=== PATIENT | male | born 1995 | race African-American/Black ===

== ENCOUNTER 2017-01-09 21:57 | Emergency (ER) | payer BC ==
[~2017-01-09 21:57] MED LIST: BECL8.7A6 IH; MONT10TA9 PO; PRED20TA PO; PROVENTIL HFA6.7 GM IH
[2017-01-09 22:06] VITALS: BP 129/61
--- NOTE | 2017-01-09 22:45 | PHYS DOC ---
Past Medical History Past Medical History: Asthma Past Surgical History: No Surgical History Alcohol Use: None Drug Use: None Adult General Chief Complaint Chief Complaint: ASTHMA HPI HPI Patient is a 21 year old female presents emergency department stating that he' s had a cough and congestion with some maxillary sinus pressure for the last few days. He states that he's been waking about the middle the night with wheezing. He states he uses his inhaler which seemed to help briefly. He denies any fever, chills or any nausea or vomiting. He states he was last on steroids approximately 3 months ago. She does state he's had a productive cough and when she is coughing up blood-tinged sputum. Review of Systems Review of Systems Constitutional: Denies fever or chills [] Eyes: Denies change in visual acuity, redness, or eye pain [] HENT: nasal congestion denies sore throat [] Respiratory: cough with wheezing denies shortness of breath [] Cardiovascular: No additional information not addressed in HPI [] GI: Denies abdominal pain, nausea, vomiting, bloody stools or diarrhea [] : Denies dysuria or hematuria [] Musculoskeletal: Denies back pain or joint pain [] Integument: Denies rash or skin lesions [] Neurologic: Denies headache, focal weakness or sensory changes [] Current Medications Current Medications Current Medications Medications (Trade) Dose Ordered Sig/Alta Start Time Stop Time Status Last Admin Dose Admin Albuterol Sulfate (Ventolin Neb Soln) 2.5 mg 1X ONCE 01/09/17 23:00 01/09/17 23:01 01/09/17 22:42 2.5 MG Allergies Allergies Allergies Coded Allergies Type Severity Reaction Last Updated Verified No Known Drug Allergies 03/18/15 No Physical Exam Physical Exam Constitutional: Well developed, well nourished, no acute distress, non-toxic appearance. [] HENT: Normocephalic, atraumatic, bilateral external ears normal, oropharynx moist, no oral exudates, nose normal. Lateral tympanic membranes appear to be normal. Throat with erythematous with postnasal drip yellow in color noted. Patient with maxillary sinus tenderness noted. Eyes: PERRLA, EOMI, conjunctiva normal, no discharge. [] Neck: Normal range of motion, no tenderness, supple, no stridor. [] Cardiovascular:Heart rate regular rhythm, no murmur [] Lungs & Thorax: Bilateral breath sounds wheezes noted in the left posterior lower lobes. Skin: Warm, dry, no erythema, no rash. [] Back: No tenderness Extremities: No tenderness, no cyanosis, no clubbing, ROM intact, no edema. [] Neurologic: Alert and oriented X 3, normal motor function, normal sensory function, no focal deficits noted. [] Psychologic: Affect normal, judgement normal, mood normal. [] Current Patient Data Vital Signs Vital Signs Date Time Temp Pulse Resp B/P Pulse Ox O2 Delivery O2 Flow Rate FiO2 01/09/17 22:42 96 Room Air 01/09/17 22:06 97.6 68 16 97.6 EKG EKG [] Radiology/Procedures Radiology/Procedures [] Course & Med Decision Making Course & Med Decision Making Pertinent Labs and Imaging studies reviewed. (See chart for details) Patient was provided with respiratory treatment in which has helped him. Patient will be discharged home with prednisone and Augmentin for sinusitis infection. Patient will be discharged with recommended for Tylenol or ibuprofen. Recommended Sudafed to help with the sinus pressure. Mucinex DM for cough and congestion. Patient will be discharged home in stable condition. Patient was provided with signs and symptoms to return back to the emergency department. [] Dragon Disclaimer Dragon Disclaimer This electronic medical record was generated, in whole or in part, using a voice recognition dictation system. Departure Departure Impression: Primary Impression: Sinusitis Additional Impression: Asthma exacerbation Disposition: HOME, SELF-CARE Condition: STABLE Referrals: NO PCP (PCP) Patient Instructions: Asthma, Adult, [id number], Sinusitis, Akse-[id number] Additional Instructions: Home to rest. Medications as prescribed. Make sure you take all the antibiotics as instructed. Tylenol or ibuprofen for fever chills or generalized body aches and discomfort. Sudafed as directed by swing frame grinder operator [id number] to help with sinus pressure. Mucinex DM [id number] to help with nasal congestion as well as cough. Follow-up the primary care physician next 3-5 days. Return back to emergency prior signs symptoms of become worse. Scripts Prednisone 20 Mg [id number] Mg PO DAILY #10 TAB Prov:LANE IRIZARRY MATH PROFESSOR 01/09/17 Amoxicillin/Potassium Clav (Augmentin 875-125 Tablet)1 Each Tablet1 Tab PO BID # 20 TAB Prov:LANE IRIZARRY APRN 01/09/[address] IRIZARRY APRN Jan 09, 2017 22:45
[2017-01-09] MEDS ORDERED: PRED20TA PO (23:00)
[2017-01-09] MEDS ORDERED: AMOX1TAB61 PO (23:00)
[2017-01-09] MEDS ORDERED: ALBUTEROL SULFATE 2.5 MG/3 ML NEBU. NEB ONE (23:00)
== END 2017-01-09 23:05 | disposition home or self-care (01) ==
LOC: ER 21:57
DX: J32.0 Chronic maxillary sinusitis (principal); J45.901 Unspecified asthma with (acute) exacerbation
CPT/HCPCS: 94640; 99283-25

== ENCOUNTER 2017-03-01 10:06 | Emergency (ER) | payer BC ==
[~2017-03-01] VITALS: Ht 185.4 cm; Wt 86.2 kg
[~2017-03-01 10:06] MED LIST changes: +AMOX1TAB61 PO
[2017-03-01 10:15] VITALS: BP 139/92
--- NOTE | 2017-03-01 10:23 | PHYS DOC ---
Past Medical History Past Medical History: Asthma Past Surgical History: No Surgical History Alcohol Use: None Drug Use: None Adult General Chief Complaint Chief Complaint: SUTURE/STAPLE REMOVAL [facility] HPI Patient is a 21 year old male presents to the emergency department with a history of asthma. Patient states he has had wheezing in which he has used his inhaler without relief. He cannot remember when he was on steroids last. He denies fever, chills, or nausea and vomiting. Patient also states he has sutures above his left eye that needs to be removed. Patient states they were place about 4 days ago. He denies drainage or discharge from the site. Review of Systems Review of Systems Constitutional: Denies fever or chills [] Eyes: Denies change in visual acuity, redness, or eye pain [] HENT: Denies nasal congestion or sore throat [] Respiratory: Denies cough or shortness of breath. C/o wheezing Cardiovascular: No additional information not addressed in HPI [] GI: Denies abdominal pain, nausea, vomiting, bloody stools or diarrhea [] : Denies dysuria or hematuria [] Musculoskeletal: Denies back pain or joint pain [] Integument: Denies rash or skin lesions. Suture removal Neurologic: Denies headache, focal weakness or sensory changes [] Endocrine: Denies polyuria or polydipsia [] Current Medications Current Medications Current Medications Medications (Trade) Dose Ordered Sig/[facility] Start Time Stop Time Status Last Admin Dose Admin Albuterol/ Ipratropium (Duoneb) 3 ml 1X ONCE 03/01/17 10:30 03/01/17 10:31 DC 03/01/17 10:29 3 ML Prednisone (Prednisone) 40 mg 1X ONCE 03/01/17 10:30 03/01/17 10:31 DC 03/01/17 10:33 40 MG Allergies Allergies Allergies Coded Allergies Type Severity Reaction Last Updated Verified No Known Drug Allergies 03/18/15 No Physical Exam Physical Exam Constitutional: Well developed, well nourished, no acute distress, non-toxic appearance. [] HENT: Normocephalic, atraumatic, bilateral external ears normal, oropharynx moist, no oral exudates, nose normal. [] Eyes: PERRLA, EOMI, conjunctiva normal, no discharge. [] Neck: Normal range of motion, no tenderness, supple, no stridor. [] Cardiovascular:Heart rate regular rhythm, no murmur [] Lungs & Thorax: Bilateral breath sounds with wheezes noted bilaterally Skin: Warm, dry, no erythema, no rash. Patient with 3 sutures noted above the left eye with edges noted to be approximated well, no drainage or discharge noted from the site. Back: No tenderness Extremities: No tenderness, no cyanosis, no clubbing, ROM intact, no edema. [] Neurologic: Alert and oriented X 3, normal motor function, normal sensory function, no focal deficits noted. [] Psychologic: Affect normal, judgement normal, mood normal. [] Current Patient Data Vital Signs Vital Signs Date Time Temp Pulse Resp B/P (MAP) Pulse Ox O2 Delivery O2 Flow Rate FiO2 03/01/17 10:24 95 Room Air 03/01/17 10:15 97.9 54 54 97.9 EKG EKG [] Radiology/Procedures Radiology/Procedures [] Course & Med Decision Making Course & Med Decision Making Pertinent Labs and Imaging studies reviewed. (See chart for details) Patient was provided with respiratory treatment has helped with the wheezing. Patient states he feels he can breathe better. Patient was provided with prednisone here in the emergency department. He'll be discharged home with a prescription for prednisone will ask him to continue using his albuterol as needed for wheezing and shortness of air. 3 sutures were removed from the left upper eyelid with no difficulty. She no drainage or discharge noted. Patient was provided with discharge instructions treatment regimens and signs and symptoms to return back to the emergency department. [] Dragon Disclaimer Dragon Disclaimer This electronic medical record was generated, in whole or in part, using a voice recognition dictation system. Departure Departure Impression: Primary Impression: Asthma exacerbation Additional Impression: Visit for suture removal Disposition: HOME, SELF-CARE Condition: STABLE Referrals: CRISTELA LEES MD (PCP) Patient Instructions: Asthma, Adult, [id number], Suture Removal-Brief Additional Instructions: Activity as tolerated Medications prescribed. Usual albuterol and had an inhaler as needed. Keep the suture site clean and dry. Clean the site with soap and water and apply antibiotic ointment to the area twice a day. Continue to watch for signs and symptoms of infection: Redness, warmth, tenderness or any yellow/greenish drainage that returned the site. If this should happen follow-up to primary care physician immediately. Follow-up with primary care physician as needed. Return back to emergency prior signs symptoms of become worse. Scripts Ipratropium/Albuterol Sulfate (DUONEB 0.5-3(2.5) MG/3 ML) 3 Ml Ampul.neb 3 ML NEB QID, #1 XAL UNIT Prov: LANE IRIZARRY APRN 03/01/17 Prednisone (PREDNISONE) 20 Mg Tablet 40 MG PO DAILY, #14 TAB Prov: LANE IRIZARRY APRN 03/01/[address] IRIZARRY APRN March 01, 2017 10:23
[2017-03-01] MEDS ORDERED: predniSONE 20 MG TABLET PO ONE (10:30)
[2017-03-01] MEDS ORDERED: IPRATRPIUM/ALBUTEROL 0.5/2.5MG 3 ML NEBU. NEB ONE (10:30)
[2017-03-01] MEDS ORDERED: PRED20TA PO (10:44)
[2017-03-01] MEDS ORDERED: IPRA3AMP NEB (10:44)
== END 2017-03-01 10:50 | disposition home or self-care (01) ==
LOC: ER 10:45
DX: J45.901 Unspecified asthma with (acute) exacerbation (principal); S05.32XD Ocular laceration without prolapse or loss of intraocular tissue, left eye, subsequent encounter; Y93.89 Activity, other specified; Y92.89 Other specified places as the place of occurrence of the external cause; Y99.8 Other external cause status
CPT/HCPCS: 94640; 99283; J7512; J7620

== ENCOUNTER 2017-09-06 22:29 | Emergency (ER) | payer BC ==
[~2017-09-06] VITALS: Ht 185.4 cm; Wt 81.6 kg
[~2017-09-06 22:29] MED LIST changes: +IPRA3AMP NEB
--- NOTE | 2017-09-06 22:31 | PHYS DOC ---
Past Medical History Past Medical History: Asthma Past Surgical History: No Surgical History Alcohol Use: None Drug Use: None Adult General Chief Complaint Chief Complaint: SKIN RASH/ABSCESS [facility] HPI Patient is a 21 year old male who presents with swelling/discharge out of his neck. He states it started 2 days ago. He denies any fevers chills nausea or vomiting. He denies any allergies and meds are currently on any medications. He states his tetanus shot is up-to-date. Review of Systems Review of Systems Constitutional: Denies fever or chills [] Eyes: Denies change in visual acuity, redness, or eye pain [] HENT: Denies nasal congestion or sore throat [] Respiratory: Denies cough or shortness of breath [] Cardiovascular: No additional information not addressed in HPI [] GI: Denies abdominal pain, nausea, vomiting, bloody stools or diarrhea [] : Denies dysuria or hematuria [] Musculoskeletal: Denies back pain or joint pain [] Integument: Positive for skin lesion on his neck. Neurologic: Denies headache, focal weakness or sensory changes [] Endocrine: Denies polyuria or polydipsia [] All other systems were reviewed and found to be within normal limits, except as documented in this note. Current Medications Current Medications Current Medications Medications (Trade) Dose Ordered Sig/Alta Start Time Stop Time Status Last Admin Dose Admin Clindamycin HCl (Cleocin) 300 mg 1X ONCE 09/06/17 23:30 09/06/17 23:31 Allergies Allergies Allergies Coded Allergies Type Severity Reaction Last Updated Verified No Known Drug Allergies 03/18/15 No Physical Exam Physical Exam Constitutional: Well developed, well nourished, no acute distress, non-toxic appearance. [] HENT: Normocephalic, atraumatic, bilateral external ears normal, oropharynx moist, no oral exudates, nose normal. [] Eyes: PERRLA, EOMI, conjunctiva normal, no discharge. [] Neck: Normal range of motion, no tenderness, supple, no stridor. [] Cardiovascular:Heart rate regular rhythm, no murmur [] Lungs & Thorax: Bilateral breath sounds clear to auscultation [] Abdomen: Bowel sounds normal, soft, no tenderness, no masses, no pulsatile masses. [] Skin: Warm, dry, no erythema, no rash. 1 cm mobile mass with mild erythema and purulent discharge on his anterior neck Back: No tenderness, no CVA tenderness. [] Extremities: No tenderness, no cyanosis, no clubbing, ROM intact, no edema. [] Neurologic: Alert and oriented X 3, normal motor function, normal sensory function, no focal deficits noted. [] Psychologic: Affect normal, judgement normal, mood normal. [] Current Patient Data Vital Signs Vital Signs Date Time Temp Pulse Resp B/P (MAP) Pulse Ox O2 Delivery O2 Flow Rate FiO2 09/06/17 22:32 97.1 61 16 98 Room Air 97.1 EKG EKG [] Radiology/Procedures Radiology/Procedures [] Impressions: Abscess/cellulitis Course & Med Decision Making Course & Med Decision Making Pertinent Labs and Imaging studies reviewed. (See chart for details) 30 tell this is an abscess but was able to drain a small amount of pus from and obtain a culture. Or if this is an enlarged lymph node. He is afebrile and has no other signs of cellulitis or other skin lesions above this enlarged mass. His tetanus is up-to-date. We'll treat with clindamycin for 10 days and him to follow-up with his primary care physician within 4-5 days to see if this doesn' t resolve. He is instructed return back to ER if he has any trouble swallowing, breathing, fevers or other concerns. Dragon Disclaimer Dragon Disclaimer This electronic medical record was generated, in whole or in part, using a voice recognition dictation system. Incision and Drainage Indication: abscess Procedure: The patient was positioned appropriately. . An incision was then made over the apex of the lesion and small amount of material was expressed. he patients tetanus status updated as needed. The patient tolerated the procedure well. Complications: none. Departure Departure Impression: Primary Impression: Cellulitis Disposition: 01 HOME, SELF-CARE Condition: STABLE Referrals: CRISTELA VIEIRA MD (PCP) Patient Instructions: Cellulitis Additional Instructions: You likely have an infection and this is why the left no new neck is swollen. There was likely an infected hair around it that I drained the pus from around the area. You will need take antibiotic for the next 10 days. You'll need follow -up with Dr. Vieira within the next 3-5 days. If you develop high fevers, worsening swelling, troubles breathing, uncontrolled nausea vomiting or other concerns please return back to ER. Please take all your antibiotics as instructed. Scripts Clindamycin Hcl (CLINDAMYCIN HCL) 300 Mg Capsule 1 CAP PO Q6HRS, #40 CAP Prov: RALIN SWEET MD 09/06/17 ARLIN SWEET MD Sep 06, 2017 22:31
[2017-09-06 22:32] VITALS: BP 141/82
[2017-09-06] MEDS ORDERED: CLIN300C8 PO (23:00)
[2017-09-06] MEDS ORDERED: CLINDAMYCIN HCL 150 MG CAPSULE. PO ONE (23:30)
== END 2017-09-06 23:13 | disposition home or self-care (01) ==
LOC: ER 22:29
DX: L02.11 Cutaneous abscess of neck (principal); J45.909 Unspecified asthma, uncomplicated
CPT/HCPCS: 10060; 87071; 87075; 87186; 87205; 99284-25

== ENCOUNTER 2018-03-21 22:57 | Emergency (ER) | payer BC ==
[2018-03-21] MEDS: IPRATRPIUM/ALBUTEROL 0.5/2.5MG 3 ML NEBU. NEB (23:41)
[2018-03-21] MEDS: predniSONE 20 MG TABLET PO (23:51)
[2018-03-22] MEDS: ALBUTEROL SULFATE 2.5 MG/3 ML NEBU. NEB
== END 2018-03-22 00:50 | disposition home or self-care (01) ==
LOC: ER 03-22 00:50
DX: J45.901 Unspecified asthma with (acute) exacerbation (principal); Z91.041 Radiographic dye allergy status
CPT/HCPCS: 94640; 99284-25; J7512; J7613; J7620

== ENCOUNTER 2018-04-16 20:29 | Inpatient (IN) | payer SELFPAY ==
[2018-04-16] MEDS ORDERED: IPRATRPIUM/ALBUTEROL 0.5/2.5MG 3 ML NEBU. (21:24)
[2018-04-16] MEDS ORDERED: ALBUTEROL SULFATE 2.5 MG/3 ML NEBU. (21:24)
[2018-04-16] MEDS ORDERED: methylPREDNISolone SOD SUCC PF 125 MG/2 ML VIAL. (21:31)
[2018-04-16] MEDS: ALBUTEROL SULFATE 2.5 MG/3 ML NEBU. CONT NEB (21:33)
[2018-04-16] MEDS: methylPREDNISolone SOD SUCC PF 125 MG/2 ML VIAL. IV (21:34)
[2018-04-16] MEDS: MAGNESIUM SULFATE 2GM 50 ML IV (22:40)
[2018-04-16] MEDS: IPRATRPIUM/ALBUTEROL 0.5/2.5MG 3 ML NEBU. NEB ×2 (22:54→23:00)
[2018-04-16] MEDS: MONTELUKAST SODIUM 10 MG TABLET. PO (23:16)
[2018-04-17] MEDS: IPRATRPIUM/ALBUTEROL 0.5/2.5MG 3 ML NEBU. NEB ×7 (02:12→19:44)
[2018-04-17 04:46] LABS: BASO % 0 % (0-3); EOS % 0 % (0-3); HEMATOCRIT 51.9 % (39.0-53.0); HEMOGLOBIN 17.3 g/dL (13.0-17.5); LYMPH # 0.6 x10^3/uL (1.0-4.8); LYMPH % 4 % (24-48); MEAN CORPUSCULAR HEMOGLOBIN 32 pg (25-35); MEAN CORPUSCULAR HGB CONC 33 g/dL (31-37); MEAN CORPUSCULAR VOLUME 97 fL (79-100); MONO # 0.3 x10^3/uL (0.0-1.1); MONO % 3 % (0-9); NEUT % 93 % (31-73); PLATELET COUNT 250 x10^3/uL (140-400); RED BLOOD COUNT 5.33 x10^6/uL (4.30-5.70)
[2018-04-17 05:14] LABS: ADD MAN DIFF? YES
[2018-04-17 05:16] LABS: ANION GAP 6 (6-14); BLOOD UREA NITROGEN 11 mg/dL (8-26); CALCIUM 11.2 mg/dL (8.5-10.1); CARBON DIOXIDE 25 mmol/L (21-32); CHLORIDE 96 mmol/L (98-107); CREATININE 1.1 mg/dL (0.7-1.3); GFR 102.2; GLUCOSE 72 mg/dL (70-99); POTASSIUM 4.3 mmol/L (3.5-5.1); SODIUM 127 mmol/L (136-145)
[2018-04-17] MEDS: methylPREDNISolone SOD SUCC PF 125 MG/2 ML VIAL. IV ×4 (05:59→18:12)
[2018-04-17 08:53] LABS: % BANDS 2 % (0-9); % LYMPHS 3 % (24-48); % MONOS 3 % (0-10); % SEGS 92 % (35-66); PLT ESTIMATE ADEQUATE (ADEQUATE)
[2018-04-17] MEDS ORDERED: ALBUTEROL SULFATE 2.5 MG/3 ML NEBU. NEB (14:45)
[2018-04-17] MEDS: BUDESONIDE 0.5 MG/2 ML NEBU. NEB (19:44)
[2018-04-17 21:10] LABS: MRSA BY PCR Negative (Negative)
[2018-04-17] MEDS: MONTELUKAST SODIUM 10 MG TABLET. PO (21:24)
[2018-04-18] MEDS: methylPREDNISolone SOD SUCC PF 125 MG/2 ML VIAL. IV ×4 (00:15→18:25)
[2018-04-18] MEDS: IPRATRPIUM/ALBUTEROL 0.5/2.5MG 3 ML NEBU. NEB ×4 (07:48→20:00)
[2018-04-18] MEDS: BUDESONIDE 0.5 MG/2 ML NEBU. NEB ×2 (07:48→20:00)
[2018-04-18] MEDS: AZITHROMYCIN 500 MG in IV NORMAL SALINE 250ML 250 ML IV (17:10)
== END 2018-04-19 07:15 | disposition home or self-care (01) | DRG 202 ==
LOC: ER 20:29 → 5 NORTH 22:35
DX: J45.902 Unspecified asthma with status asthmaticus (principal); J96.00 Acute respiratory failure, unspecified whether with hypoxia or hypercapnia; Z82.5 Family history of asthma and other chronic lower respiratory diseases; Z83.3 Family history of diabetes mellitus; Z79.899 Other long term (current) drug therapy
CPT/HCPCS: 36415; 71045; 80048; 85007; 85025; 87641; 93005; 94640; 94644; 94760; 96365; 96375; 99291-25; J0456; J2930; J3475; J7050; J7613; J7620; J7626

== ENCOUNTER 2018-07-08 21:37 | Emergency (ER) | payer OTHER ==
[~2018-07-08] VITALS: Ht 185.4 cm; Wt 82.6 kg
[~2018-07-08 21:37] MED LIST changes: +ALBU2.5V14 NEB; +AZIT250T6 PO; +CLIN300C8 PO; -IPRA3AMP NEB; +IPRA3AMP29 NEB; +MOME13HF2 IH; +PRED-220 PO; +PRED50TA PO; +PROAIR HFA8.5 GM INH; +TIOT18CA IH
[2018-07-08 21:40] VITALS: BP 129/74
--- NOTE | 2018-07-08 21:53 | PHYS DOC ---
Past Medical History Past Medical History: Asthma Past Surgical History: No Surgical History Alcohol Use: None Drug Use: None Adult General Chief Complaint Chief Complaint: ASTHMA HPI HPI Patient is a 22 year old male with a PMH for asthma and allergies who presents to the ED with shortness of breath, wheezing, and nonproductive cough. Patient states his symptoms began one day ago after he worked out at the gym. He notes his symptoms are worse with activity such as walking up stairs. He denies any chest pain, headaches, or dizziness. He states he has had symptoms like this in the past for which he received Duoneb treatments. He states he took albuterol earlier today before coming to the ED. Review of Systems Review of Systems Constitutional: Denies fever or chills [] Eyes: Denies change in visual acuity, redness, or eye pain [] HENT: Denies nasal congestion or sore throat [] Respiratory: Denies cough or shortness of breath [] Cardiovascular: No additional information not addressed in HPI [] GI: Denies abdominal pain, nausea, vomiting, bloody stools or diarrhea [] : Denies dysuria or hematuria [] Musculoskeletal: Denies back pain or joint pain [] Integument: Denies rash or skin lesions [] Neurologic: Denies headache, focal weakness or sensory changes [] Endocrine: Denies polyuria or polydipsia [] All other systems were reviewed and found to be within normal limits, except as documented in this note. Family History Family History Father- asthma Grandmother- asthma Current Medications Current Medications Current Medications Medications (Trade) Dose Ordered Sig/Alta Start Time Stop Time Status Last Admin Dose Admin Albuterol/ Ipratropium (Duoneb) 3 ml 1X ONCE 07/08/18 23:00 07/08/18 23:01 Dexamethasone (Decadron) 10 mg 1X ONCE 07/08/18 22:00 07/08/18 22:01 DC Allergies Allergies Allergies Coded Allergies Type Severity Reaction Last Updated Verified No Known Medication Allergies Allergy Unknown 09/11/17 Yes Physical Exam Physical Exam Constitutional: Well developed, well nourished, no acute distress, non-toxic appearance. [] HENT: Normocephalic, atraumatic, bilateral external ears normal, oropharynx moist, no oral exudates, nose normal. [] Eyes: PERRLA, EOMI, conjunctiva normal, no discharge. [] Neck: Normal range of motion, no tenderness, supple, no stridor. [] Cardiovascular:Heart rate regular rhythm, no murmur [] Lungs & Thorax: Bilateral breath sounds clear to auscultation [] Abdomen: Bowel sounds normal, soft, no tenderness, no masses, no pulsatile masses. [] Skin: Warm, dry, no erythema, no rash. [] Back: No tenderness, no CVA tenderness. [] Extremities: No tenderness, no cyanosis, no clubbing, ROM intact, no edema. [] Neurologic: Alert and oriented X 3, normal motor function, normal sensory function, no focal deficits noted. [] Psychologic: Affect normal, judgement normal, mood normal. [] Current Patient Data Vital Signs Vital Signs Date Time Temp Pulse Resp B/P (MAP) Pulse Ox O2 Delivery O2 Flow Rate FiO2 07/08/18 22:16 98 Room Air 07/08/18 21:40 98.8 118 28 129/74 (92) 98.8 EKG EKG [] Radiology/Procedures Radiology/Procedures [] Course & Med Decision Making Course & Med Decision Making Patient is a 22 year old male with a PMH for asthma and allergies who presents to the ED with shortness of breath, wheezing, and nonproductive cough. Pertinent imaging studies were obtained and reviewed. Chest x-ray showed no acute abnormalities. Symptoms likely due to asthma exacerbation. Patient was provided a dose of Prednisone and Duoneb treatment x2 in the ED. Patient noted that he has albuterol inhaler as well as nebulizer solution at home. He was provided with a 4-day prescription for Prednisone. Patient stable for discharge with outpatient follow-up with PCP. Discussed findings and plan with patient and family, who acknowledge understanding and agreement. Dragon Disclaimer Dragon Disclaimer This electronic medical record was generated, in whole or in part, using a voice recognition dictation system. Departure Departure Impression: Primary Impression: Asthma exacerbation Disposition: 01 HOME, SELF-CARE Condition: STABLE Referrals: NO PCP (PCP) Patient Instructions: Asthma, Adult, [id number] Scripts Prednisone (PREDNISONE) 20 Mg Tablet 2 TAB PO DAILY PRN for COUGH for 4 Days, #8 TAB Take next dose on 07/09/2018 Prov: PAULINE HESTER DO 07/08/18 Problem Qualifiers Primary Impression: Asthma exacerbation Asthma severity: unspecified severity Asthma persistence: unspecified Qualified Codes: J45.901 - Unspecified asthma with (acute) exacerbation PAULINE HESTER DO Jul 08, 2018 21:53
[2018-07-08] MEDS ORDERED: IPRATRPIUM/ALBUTEROL 0.5/2.5MG 3 ML NEBU. NEB ONE ×2 (22:00→23:00)
[2018-07-08] MEDS ORDERED: DEXAMETHASONE 4 MG TABLET PO ONE (22:00)
[2018-07-08] MEDS ORDERED: PRED20TA PO (22:40)
--- NOTE | 2018-07-08 23:23 | RAD ---
Exam performed: 2 views of the chest. Indication: dyspnea, hx of asthma Date of Service: 07/08/2018 9:45 PM . Comparison : One view chest from March 17, 2018 Findings: PA and lateral radiographs of the chest reveal a normal cardiomediastinal contour. The lungs are clear. No pleural fluid is seen. The visualized osseous structures are unremarkable. Impression: No acute cardiopulmonary process seen. Electronically signed by: Nita Knight MD (07/08/2018 11:20 PM) [facility]
== END 2018-07-08 23:45 | disposition home or self-care (01) ==
LOC: ER 21:37
DX: J45.901 Unspecified asthma with (acute) exacerbation (principal)
CPT/HCPCS: 71046; 94640; 99284; J7620

== ENCOUNTER 2019-01-30 16:06 | Emergency (ER) | payer OTHER ==
[~2019-01-30] VITALS: Ht 185.4 cm; Wt 81.6 kg
[~2019-01-30 16:06] MED LIST changes: +ALBU2.5V8 IH; +ALBU2.5V8 INH; -PROAIR HFA8.5 GM INH; -PROVENTIL HFA6.7 GM IH
[2019-01-30 16:35] VITALS: BP 140/69
[2019-01-30] MEDS ORDERED: PRED50TA PO (16:53)
[2019-01-30] MEDS ORDERED: VENTOLIN HFA18 GM INH (16:53)
--- NOTE | 2019-01-30 16:53 | PHYS DOC ---
Past Medical History Past Medical History: Asthma, Other Additional Past Medical Histor: SEASONAL ALLERGIES- dust, ragweed Past Surgical History: No Surgical History Alcohol Use: None Drug Use: None Adult General Chief Complaint Chief Complaint: ASTHMA HPI HPI Patient is a 23 year old male with history of asthma who presents to the ED today with wheezing and shortness of breath that began yesterday. Patient states he has tried his breathing treatments with no improvement. Review of Systems Review of Systems Constitutional: Denies fever or chills [] Eyes: Denies change in visual acuity, redness, or eye pain [] HENT: Denies nasal congestion or sore throat [] Respiratory: Reports cough, wheezing, shortness of breath [] Cardiovascular: No additional information not addressed in HPI [] GI: Denies abdominal pain, nausea, vomiting, bloody stools or diarrhea [] : Denies dysuria or hematuria [] Musculoskeletal: Denies back pain or joint pain [] Integument: Denies rash or skin lesions [] Neurologic: Denies headache, focal weakness or sensory changes [] All other systems were reviewed and found to be within normal limits, except as documented in this note. Current Medications Current Medications Current Medications Medications (Trade) Dose Ordered Sig/Alta Start Time Stop Time Status Last Admin Dose Admin Albuterol/ Ipratropium (Duoneb) 3 ml 1X ONCE 01/30/19 17:00 01/30/19 17:01 DC 01/30/19 16:59 3 ML Prednisone (Prednisone) 60 mg 1X ONCE 01/30/19 17:00 01/30/19 17:01 DC 01/30/19 17:00 60 MG Allergies Allergies Allergies Coded Allergies Type Severity Reaction Last Updated Verified No Known Medication Allergies Allergy Unknown 09/11/17 Yes Physical Exam Physical Exam Constitutional: Well developed, well nourished, no acute distress, non-toxic appearance. [] HENT: Normocephalic, atraumatic, bilateral external ears normal, oropharynx moist, no oral exudates, nose normal. [] Eyes: PERRLA, EOMI, conjunctiva normal, no discharge. [] Neck: Normal range of motion, no tenderness, supple, no stridor. [] Cardiovascular:Heart rate regular rhythm, no murmur [] Lungs & Thorax: Diffuse wheezing throughout the lung bases. Abdomen: Bowel sounds normal, soft, no tenderness, no masses, no pulsatile masses. [] Skin: Warm, dry, no erythema, no rash. [] Back: No tenderness, no CVA tenderness. [] Extremities: No tenderness, no cyanosis, no clubbing, ROM intact, no edema. [] Neurologic: Alert and oriented X 3, normal motor function, normal sensory function, no focal deficits noted. [] Psychologic: Affect normal, judgement normal, mood normal. [] Current Patient Data Vital Signs Vital Signs Date Time Temp Pulse Resp B/P (MAP) Pulse Ox O2 Delivery O2 Flow Rate FiO2 01/30/19 17:01 97 Room Air 01/30/19 16:35 98.4 77 24 140/69 (92) 98.4 EKG EKG [] Radiology/Procedures Radiology/Procedures [] Course & Med Decision Making Course & Med Decision Making Pertinent Labs and Imaging studies reviewed. (See chart for details) This is a 23-year-old male patient presenting to the ED today with symptoms consistent of asthma exacerbation. Patient was given a DuoNeb treatment, prednisone. Breathing improved. Feeling better. D/c to home f/u with PCP in 1 week. D/c on prednisone and albuterol. f/u with PCP next week. Dragon Disclaimer Dragon Disclaimer This electronic medical record was generated, in whole or in part, using a voice recognition dictation system. Departure Departure Impression: Primary Impression: Asthma exacerbation Disposition: HOME, SELF-CARE Condition: STABLE Referrals: NO PCP (PCP) follow up with your doctor next week Patient Instructions: Asthma, Adult, [id number] Additional Instructions: You were seen with symptoms consistent of an asthma exacerbation. Take the prescribed prednisone until completed. Perform breathing treatments as needed. Continue taking allergy medications and follow-up with your doctor next week. Scripts Albuterol Sulfate (VENTOLIN HFA INHALER) 18 Gm Hfa.aer.ad 2 PUFF INH Q4HRS for FOR ASTHMA, #1 INHALER 0 Refills Prov: DIPESH TRUJILLO APRN 01/30/19 Prednisone (PREDNISONE) 50 Mg Tablet 1 TAB PO DAILY, #5 TAB Prov: DIPESH TRUJILLO APRN 01/30/19 Problem Qualifiers Primary Impression: Asthma exacerbation Asthma severity: mild Asthma persistence: intermittent Qualified Codes: J45.21 - Mild intermittent asthma with (acute) exacerbation DIPESH TRUJILLO APRN Jan 30, 2019 16:53
[2019-01-30] MEDS ORDERED: IPRATRPIUM/ALBUTEROL 0.5/2.5MG 3 ML NEBU. NEB ONE (17:00)
[2019-01-30] MEDS ORDERED: predniSONE 20 MG TABLET PO ONE (17:00)
[2019-03-07] MEDS ORDERED: PRED20TA PO (05:14)
[2019-03-07] MEDS ORDERED: ALBU2.5V14 NEB (05:14)
[2019-03-23] MEDS ORDERED: CETI10TA22 PO (18:27)
[2019-03-23] MEDS ORDERED: FLUT100D IH (18:27)
[2019-03-23] MEDS ORDERED: MONT10TA9 PO (18:27)
== END 2019-01-30 17:57 | disposition home or self-care (01) ==
LOC: ER 16:06
DX: J45.21 Mild intermittent asthma with (acute) exacerbation (principal)
CPT/HCPCS: 94640; 99283; J7512; J7620

== ENCOUNTER 2019-02-17 08:31 | Emergency (ER) | payer OTHER ==
[~2019-02-17] VITALS: Ht 185.4 cm; Wt 81.6 kg
[~2019-02-17 08:31] MED LIST changes: +VENTOLIN HFA18 GM INH
[2019-02-17] MEDS ORDERED: predniSONE 20 MG TABLET PO ONE (08:45)
[2019-02-17] MEDS ORDERED: IPRATRPIUM/ALBUTEROL 0.5/2.5MG 3 ML NEBU. NEB ONE (08:45)
--- NOTE | 2019-02-17 08:47 | PHYS DOC ---
Past Medical History Past Medical History: Asthma, Other Additional Past Medical Histor: SEASONAL ALLERGIES- dust, ragweed Past Surgical History: No Surgical History Alcohol Use: None Drug Use: None Adult General Chief Complaint Chief Complaint: ASTHMA HPI HPI Patient is a 23 year old male with a history of asthma who presents to the ED today complaining of nasal congestion, cough, shortness of breath due to his asthma, symptoms began 3 days ago. He states he is using Singulair as well as his inhalers with no relief. He is also concerned he could have a sinus infection considering his congested nasally. Off note patient has been on his phone throughout the conversation in the ED Review of Systems Review of Systems Constitutional: Denies fever or chills [] Eyes: Denies change in visual acuity, redness, or eye pain [] HENT: Reports nasal congestion, denies sore throat [] Respiratory: Reports cough and shortness of breath [] Cardiovascular: No additional information not addressed in HPI [] GI: Denies abdominal pain, nausea, vomiting, bloody stools or diarrhea [] : Denies dysuria or hematuria [] Musculoskeletal: Denies back pain or joint pain [] Integument: Denies rash or skin lesions [] Neurologic: Denies headache, focal weakness or sensory changes [] All other systems were reviewed and found to be within normal limits, except as documented in this note. Current Medications Current Medications Current Medications Medications (Trade) Dose Ordered Sig/Alta Start Time Stop Time Status Last Admin Dose Admin Albuterol/ Ipratropium (Duoneb) 3 ml 1X ONCE 02/17/19 08:45 02/17/19 08:46 DC 02/17/19 09:09 3 ML Prednisone (Prednisone) 60 mg 1X ONCE 02/17/19 08:45 02/17/19 08:46 DC 02/17/19 08:57 60 MG Allergies Allergies Allergies Coded Allergies Type Severity Reaction Last Updated Verified No Known Medication Allergies Allergy Unknown 09/11/17 Yes Physical Exam Physical Exam Constitutional: Well developed, well nourished, no acute distress, non-toxic appearance. [] HENT: Normocephalic, atraumatic, bilateral external ears normal, oropharynx moist, no oral exudates, patient is sniffling. Eyes: PERRLA, EOMI, conjunctiva normal, no discharge. [] Neck: Normal range of motion, no tenderness, supple, no stridor. [] Cardiovascular:Heart rate regular rhythm, no murmur [] Lungs & Thorax: Tight chest, no wheezing Abdomen: Bowel sounds normal, soft, no tenderness, no masses, no pulsatile masses. [] Skin: Warm, dry, no erythema, no rash. [] Back: No tenderness, no CVA tenderness. [] Extremities: No tenderness, no cyanosis, no clubbing, ROM intact, no edema. [] Neurologic: Alert and oriented X 3, normal motor function, normal sensory function, no focal deficits noted. [] Psychologic: Affect normal, judgement normal, mood normal. [] Current Patient Data Vital Signs Vital Signs Date Time Temp Pulse Resp B/P (MAP) Pulse Ox O2 Delivery O2 Flow Rate FiO2 02/17/19 09:11 96 Room Air 02/17/19 08:36 98.7 88 17 140/67 (91) 98.7 EKG EKG [] Radiology/Procedures Radiology/Procedures [] Course & Med Decision Making Course & Med Decision Making Pertinent Labs and Imaging studies reviewed. (See chart for details) This is a 23-year-old male patient with history of asthma presenting to the ED today with cough and nasal congestion and shortness of breath, symptoms for 3 days. Patient was concerned he could also have sinus congestion, his symptoms have only been for 3 days, he is afebrile, he does not meet acute sinusitis treatment with antibiotics. I recommended he continues using [id number] remedies including Flonase. He was given a DuoNeb treatment and prednisone in the ED. Breathing is back to baseline, lungs cleared up. Patient is in no distress, was discharged with albuterol inhaler. Also discharged with prednisone, reminded he does not meet material for acute sinusitis with treatment with antibiotics. Provided primary care doctor for follow-up. Discharged in stable condition. Dragon Disclaimer Dragon Disclaimer This electronic medical record was generated, in whole or in part, using a voice recognition dictation system. Departure Departure Impression: Primary Impression: Asthma exacerbation Additional Impression: Upper respiratory infection Disposition: HOME, SELF-CARE Condition: STABLE Referrals: NO PCP (PCP) Follow up in one week with the primary care doctor Patient Instructions: Asthma, Adult, Upper Respiratory Infection, Adult Additional Instructions: You were evaluated in the emergency room, your symptoms do not meet criteria for antibiotic treatment for acute sinusitis. Please take the prescribed medications as ordered. Please consider establishing care with a primary care doctor and follow-up in the next 7 days. Scripts Albuterol Sulfate (Proventil Hfa) 6.7 Gm Hfa.aer.ad 1 PUFF INH PRN Q6HRS PRN for SHORTNESS OF BREATH, #1 INHALER Prov: DIPESH TRUJILLO APRN 02/17/19 Prednisone (PREDNISONE) 50 Mg Tablet 1 TAB PO DAILY, #5 TAB Prov: DIPESH TRUJILLO APRN 02/17/19 Fluticasone Propionate (Flonase Allergy Relief) 9.9 Ml [place].susp 2 SPRAYS NS DAILY, #1 BOTTLE Prov: DIPESH TRUJILLO APRN 02/17/19 Problem Qualifiers Primary Impression: Asthma exacerbation Asthma severity: mild Asthma persistence: intermittent Qualified Codes: J45.21 - Mild intermittent asthma with (acute) exacerbation Additional Impression: Upper respiratory infection URI type: unspecified URI Qualified Codes: J06.9 - Acute upper respiratory infection, unspecified DIPESH TRUJILLO APRN February 17, 2019 08:47
[2019-02-17] MEDS ORDERED: PROVENTIL HFA6.7 G2 INH (09:35)
[2019-02-17] MEDS ORDERED: FLUT9.9S NS (09:35)
[2019-02-17] MEDS ORDERED: PRED50TA PO (09:35)
[2019-02-17 09:43] VITALS: BP 138/82
[2019-03-07] MEDS ORDERED: ALBU2.5V14 NEB (05:14)
[2019-03-07] MEDS ORDERED: PRED20TA PO (05:14)
[2019-03-23] MEDS ORDERED: CETI10TA22 PO (18:27)
[2019-03-23] MEDS ORDERED: FLUT100D IH (18:27)
[2019-03-23] MEDS ORDERED: MONT10TA9 PO (18:27)
== END 2019-02-17 09:51 | disposition home or self-care (01) ==
LOC: ER 08:31
DX: J45.21 Mild intermittent asthma with (acute) exacerbation (principal); J06.9 Acute upper respiratory infection, unspecified
CPT/HCPCS: 94640; 99283; J7512; J7620

== ENCOUNTER 2021-02-26 08:48 | Emergency (ER) | payer BC, OTHER ==
[~2021-02-26] VITALS: Ht 185.4 cm; Wt 85.0 kg
[~2021-02-26 08:48] MED LIST changes: -ALBU2.5V8 IH; +CETI10TA74 PO; -CLIN300C8 PO; +CLIN300C9 PO; +DOXY100T PO; +FLUT100D2 IH; +FLUT1DIS3 IH; +FLUT9.9S NS; +MONT10TA49 PO; -MONT10TA9 PO; +PROVENTIL HFA6.7 G2 INH; +PROVENTIL HFA6.7 GM IH
[2021-02-26] MEDS ORDERED: IPRATRPIUM/ALBUTEROL 0.5/2.5MG 3 ML NEBU. NEB ONE ×2 (09:30→10:00)
[2021-02-26] MEDS ORDERED: predniSONE 20 MG TABLET PO ONE (10:00)
--- NOTE | 2021-02-26 10:08 | RAD ---
Site ID: [id number] EXAMINATION: XR CHEST 1V. HISTORY: 25 years Male Reason: soa / Spl. Instructions: / History: . . COMPARISON: None. Findings: The lungs are clear. The heart size is normal. There is no effusion or pneumothorax. The mediastinum and luis carlos appear unremarkable. Impression: Unremarkable study. Electronically signed by: Nahum Oneil MD (02/26/2021 10:05 AM) [id number]
[2021-02-26] MEDS ORDERED: ALBU2.5V5 NEB (12:15)
[2021-02-26] MEDS ORDERED: PRED20TA PO (12:15)
--- NOTE | 2021-02-26 12:15 | PHYS DOC ---
Past Medical History Past Medical History: Asthma, Other Additional Past Medical Histor: SEASONAL ALLERGIES- dust, ragweed Past Surgical History: No Surgical History Smoking Status: Never Smoker Alcohol Use: None Drug Use: None General Adult EDM: Chief Complaint: ASTHMA HPI: HPI: Patient is a 25 year old male who presented to ER for evaluation of asthmatic attack. Patient has history of asthma, he has been having trouble breathing since yesterday. Patient he was treatment at home did not get better, so he came here for evaluation. Patient said he ran out. Albuterol nebulizer solution patient denies any cough or fever. Patient denies any chest pain. Review of Systems: Review of Systems: Constitutional: Denies fever or chills. [] Eyes: Denies change in visual acuity. [] HENT: Denies nasal congestion or sore throat. [] Respiratory: Denies cough, positive for trouble breathing.] Cardiovascular: Denies chest pain or edema. [] GI: Denies abdominal pain, nausea, vomiting, bloody stools or diarrhea. [] : Denies dysuria. [] Musculoskeletal: Denies back pain or joint pain. [] Integument: Denies rash. [] Neurologic: Denies headache, focal weakness or sensory changes. [] Endocrine: Denies polyuria or polydipsia. [] Lymphatic: Denies swollen glands. [] Psychiatric: Denies depression or anxiety. [] Heart Score: C/O Chest Pain: N/A Risk Factors: Risk Factors: DM, Current or recent (<one month) smoker, HTN, HLP, family hi story of CAD, obesity. Risk Scores: Score 0 - 3: 2.5% MACE over next 6 weeks - Discharge Home Score 4 - 6: 20.3% MACE over next 6 weeks - Admit for Clinical Observation Score 7 - 10: 72.7% MACE over next 6 weeks - Early Invasive Strategies Current Medications: Current Medications Medications (Trade) Dose Ordered Sig/Alta Start Time Stop Time Status Last Admin Dose Admin Albuterol/ Ipratropium (Duoneb) 3 ml 1X ONCE 02/26/21 10:00 02/26/21 10:01 DC 02/26/21 10:04 3 ML Prednisone (Prednisone) 60 mg 1X ONCE 02/26/21 10:00 02/26/21 10:01 DC 02/26/21 09:54 60 MG Allergies: Allergies: Allergies Coded Allergies Type Severity Reaction Last Updated Verified No Known Drug Allergies 03/23/19 No Physical Exam: PE: Constitutional: Well developed, well nourished, no acute distress, non-toxic appearance. [] HENT: Normocephalic, atraumatic, bilateral external ears normal, oropharynx moist, no oral exudates, nose normal. [] Eyes: PERRLA, EOMI, conjunctiva normal, no discharge. [] Neck: Normal range of motion, no tenderness, supple, no stridor. [] Cardiovascular:Heart rate regular rhythm, no murmur [] Lungs & Thorax: Bilateral breath sounds with expiratory and inspiratory wheezing to auscultation . No respiratory distress. Abdomen: Bowel sounds normal, soft, no tenderness, no masses, no pulsatile masses. [] Skin: Warm, dry, no erythema, no rash. [] Back: No tenderness, no CVA tenderness. [] Extremities: No tenderness, no cyanosis, no clubbing, ROM intact, no edema. [] Neurologic: Alert and oriented X 3, normal motor function, normal sensory function, no focal deficits noted. [] Psychologic: Affect normal, judgement normal, mood normal. [] Current Patient Data: Vital Signs: Vital Signs Date Time Temp Pulse Resp B/P (MAP) Pulse Ox O2 Delivery O2 Flow Rate FiO2 02/26/21 10:05 94 Room Air 02/26/21 09:05 98.0 72 20 156/90 (112) 98.0 EKG: EKG: [] Radiology/Procedures: Radiology/Procedures: [facility] [address] [place] [address] IMAGING REPORT Signed PATIENT: SYLIVE LEES ACCOUNT: [id number] : 1995 LOCATION: ER AGE: 25 SEX: M EXAM STATUS: REG ER ORD. PHYSICIAN: MAXIME LAKE DO REASON: soa PROCEDURE: CHEST AP ONLY Site ID: [id number] EXAMINATION: XR CHEST 1V. HISTORY: 25 years Male Reason: soa / Spl. Instructions: / History: . . COMPARISON: None. Findings: The lungs are clear. The heart size is normal. There is no effusion or pneumothorax. The mediastinum and luis carlos appear unremarkable. Impression: Unremarkable study. Electronically signed by: Chino Oneil MD (02/26/2021 10:05 AM) [id number] DICTATED and SIGNED BY: CHINO ONEIL MD DATE: 02/26/21 [id number] Course & Med Decision Making: Course & Med Decision Making Pertinent Labs and Imaging studies reviewed. (See chart for details) [] Dragon Disclaimer: Dragon Disclaimer: This electronic medical record was generated, in whole or in part, using a voice recognition dictation system. Departure Departure Impression: Primary Impression: Asthma exacerbation Disposition: HOME / SELF CARE / HOMELESS Condition: IMPROVED Referrals: SETH MILTON MD (PCP) Please follow up with your family doctor in 1-2 days for reevaluation. Patient Instructions: Asthma Attacks, Prevention, Asthma, Adult Additional Instructions: Thank you for visiting our Emergency Department. We appreciate you trusting us with your care. If any additional problems come up don't hesitate to return to visit us. Please follow up with your primary care provider so they can plan additional care if needed and know about the problem that you had. If symptoms worsen come back to the Emergency Department. Any concerning symptoms that start such as chest pain, shortness of air, weakness or numbness on one side of the body, running high fevers or any other concerning symptoms return to the ER. Scripts Albuterol Sulfate (ALBUTEROL SULFATE NEB SOLN) 2.5 Mg/3 Ml Vial.neb 1 VIAL NEB PRN Q4HRS, #50 VIAL Prov: MAXIME LAKE DO 02/26/21 Prednisone (PREDNISONE) 20 Mg Tablet 2 TAB PO DAILY for 7 Days, #14 TAB Prov: MAXIME LAKE DO 02/26/21 MAXIME LAKE DO February 26, 2021 12:15
[2021-02-26 12:17] VITALS: BP 138/86
== END 2021-02-26 12:19 | disposition home or self-care (01) ==
LOC: ER 08:48
DX: J45.901 Unspecified asthma with (acute) exacerbation (principal)
CPT/HCPCS: 71045; 94640; 99285; J7512